=== PATIENT | male | born 1955 | race African-American/Black ===

== ENCOUNTER 2021-05-27 10:13 | Inpatient (IN) | payer MEDICARE, BC ==
[~2021-05-27 10:13] MED LIST: Acetaminophen 325 MG TAB PO PRN; Ondansetron ODT 4 MG TAB SL PRN; Ondansetron PF 4 MG/2 ML Vial IVP PRN
[2021-05-27 13:20] VITALS: BMI 24.3
[2021-05-27] MEDS ORDERED: HumaLOG 300 UNITS/3 ML VIAL SC PRN (17:14)
[2021-05-27] MEDS ORDERED: Dextrose 50% Abboject 50 ML SYRINGE SLOW IVP PRN (17:14)
[2021-05-27] MEDS ORDERED: Dextrose 5% in Water 1,000 ML IV PRN (17:14)
[2021-05-27] MEDS ORDERED: Labetalol HCl 100 MG/20 ML VIAL SLOW IVP PRN (17:15)
[2021-05-27] MEDS ORDERED: hydrALAZINE 20 MG/ML VIAL SLOW IVP PRN (17:15)
[2021-05-27] MEDS ORDERED: Aspirin 81 mg Enteric Coated Tablet PO SCH (17:30)
[2021-05-27] MEDS: HumaLOG 300 UNITS/3 ML VIAL SC PRN (18:01)
[2021-05-27 21:00] LABS: SARS-CoV-2 PCR by NAA Not Detected (NotDetected)
[2021-05-27] MEDS: Atorvastatin Calcium 40 MG TAB PO SCH (21:09)
[2021-05-28 06:58] LABS: Cardiac Risk 4.7 (Less than 4.5)
[2021-05-28] MEDS ORDERED: Magnevist 469MG/ML 20 ML VIAL ONE (10:02)
[2021-05-28] MEDS: Aspirin 81 mg Enteric Coated Tablet PO SCH (10:18)
[2021-05-28] MEDS ORDERED: Clopidogrel Bisulfate 300 MG TAB PO SCH (11:15)
[2021-05-28] MEDS ORDERED: Amlodipine 10 MG TAB PO SCH (11:15)
[2021-05-28] MEDS: HumaLOG 300 UNITS/3 ML VIAL SC PRN ×2 (11:56→18:32)
[2021-05-28 12:29] LABS: Hemoglobin A1c 8.7 % (4.0-6.0)
[2021-05-28] MEDS: Atorvastatin Calcium 40 MG TAB PO SCH (21:02)
[2021-05-29] MEDS ORDERED: metFORMIN 500 MG TAB PO SCH (08:00)
[2021-05-29] MEDS: Aspirin 81 mg Enteric Coated Tablet PO SCH (08:11)
[2021-05-29] MEDS: Amlodipine 5 MG TAB PO SCH (08:11)
[2021-05-29] MEDS: Clopidogrel Bisulfate 75 MG TAB PO SCH (08:11)
[2021-05-29] MEDS: HumaLOG 300 UNITS/3 ML VIAL SC PRN ×2 (11:06→16:55)
[2021-05-29] MEDS ORDERED: Metoprolol Tartrate 25 MG TAB PO SCH (15:45)
[2021-05-29] MEDS: metFORMIN 500 MG TAB PO SCH (16:02)
[2021-05-29] MEDS: Atorvastatin Calcium 40 MG TAB PO SCH (21:07)
[2021-05-29] MEDS: Metoprolol Tartrate 25 MG TAB PO SCH (21:07)
[2021-05-30] MEDS: HumaLOG 300 UNITS/3 ML VIAL SC PRN ×2 (06:44→12:02)
[2021-05-30 08:29] LABS: #Basophils 0.1 thou/uL (0.0-0.2); #Eosinphils 0.3 thou/uL (0.0-0.7); #Lymphocytes 2.2 thou/uL (1.20-3.40); #Monocytes 0.7 thou/uL (0.11-0.59); #Neutrophils 4.5 thou/uL (1.40-6.50); %Basophils 0.7 % (0.0-1.0); %Eosinophils 3.5 % (0.0-10.0); %Lymphocytes 28.1 % (21.0-51.0); %Monocytes 9.1 % (0.0-10.0); %Neutrophils 58.6 % (42.0-75.0); Hemoglobin 13.7 g/dL (14.0-18.0); Mean Corpuscular HGB CONC 32.7 g/dL (32.0-36.0); Mean Corpuscular Hemoglobin 29.7 pg (27.0-31.0); Mean Corpuscular Volume 90.6 fL (78.0-98.0); Mean Platelet Volume 7.6 fL (7.4-10.4); Platelet Count 207 thou/uL (130-400); Red Blood Cell (RBC) Count 4.62 mill/uL (4.70-6.10); White Blood Cell (WBC) Count 7.7 thou/uL (4.8-10.8)
[2021-05-30] MEDS: Clopidogrel Bisulfate 75 MG TAB PO SCH (08:42)
[2021-05-30] MEDS: metFORMIN 500 MG TAB PO SCH ×2 (08:42→16:42)
[2021-05-30] MEDS: Aspirin 81 mg Enteric Coated Tablet PO SCH (08:42)
[2021-05-30] MEDS: Metoprolol Tartrate 25 MG TAB PO SCH (08:42)
[2021-05-30] MEDS: Amlodipine 5 MG TAB PO SCH (08:42)
[2021-05-30 08:55] LABS: Anion Gap 12 mmol/L (10-20); BUN (Urea Nitrogen) 25 mg/dL (8.4-25.7); Calc. Creatinine Clearance 52 mL/min (70-130); Calcium 9.4 mg/dL (7.8-10.44); Carbon Dioxide 25 mmol/L (23-31); Chloride 111 mmol/L (98-107); Glucose 168 mg/dL (80-115); Magnesium 2.3 mg/dL (1.6-2.6); Phosphorus 3.2 mg/dL (2.3-4.7); Potassium 3.6 mmol/L (3.5-5.1); Sodium 144 mmol/L (136-145)
[2021-05-30] MEDS ORDERED: Multivit, Therapeutic 1 TAB PO SCH (09:00)
[2021-05-30 15:51] VITALS: BP 188/96; TEMP 98.2
== END 2021-05-30 18:53 | DRG 66 ==
LOC: NEURO 12:07 → OBSVTOIN 17:20
PROVIDERS: ADMIT Internal Medicine; ATTEND Internal Medicine
DX: I63.29 Cerebral infarction due to unspecified occlusion or stenosis of other precerebral arteries (principal); Z20.822 Contact with and (suspected) exposure to COVID-19; R29.703 NIHSS score 3; R47.81 Slurred speech; R47.1 Dysarthria and anarthria; E78.5 Hyperlipidemia, unspecified; E11.22 Type 2 diabetes mellitus with diabetic chronic kidney disease; I12.9 Hypertensive chronic kidney disease with stage 1 through stage 4 chronic kidney disease, or unspecified chronic kidney disease; N18.2 Chronic kidney disease, stage 2 (mild); D53.9 Nutritional anemia, unspecified; I65.03 Occlusion and stenosis of bilateral vertebral arteries; Z79.84 Long term (current) use of oral hypoglycemic drugs; Z79.899 Other long term (current) drug therapy; G93.89 Other specified disorders of brain
CPT/HCPCS: 36415; 36416; 70553; 80048; 80061; 83036; 83735; 84100; 85025; 93306; A9579; J0360; J1815; U0003; U0005

== ENCOUNTER 2021-06-03 06:52 | Inpatient (IN) | payer MEDICARE, BC ==
[2021-06-03 08:01] LABS: #Basophils 0.1 thou/uL (0.0-0.2); #Eosinphils 0.3 thou/uL (0.0-0.7); #Lymphocytes 1.5 thou/uL (1.20-3.40); #Monocytes 0.8 thou/uL (0.11-0.59); %Basophils 0.9 % (0.0-1.0); %Eosinophils 3.5 % (0.0-10.0); %Lymphocytes 19.9 % (21.0-51.0); %Monocytes 10.7 % (0.0-10.0); Hemoglobin 12.8 g/dL (14.0-18.0); Mean Corpuscular HGB CONC 33.8 g/dL (32.0-36.0); Mean Corpuscular Hemoglobin 30.2 pg (27.0-31.0); Mean Corpuscular Volume 89.4 fL (78.0-98.0); Platelet Count 186 thou/uL (130-400); RBC Distribution Width 12.7 % (11.5-14.5); Red Blood Cell (RBC) Count 4.24 mill/uL (4.70-6.10); White Blood Cell (WBC) Count 7.7 thou/uL (4.8-10.8)
[2021-06-03 08:09] LABS: INR-International Normal Ratio 0.9; PTT 29.5 sec (22.9-36.1); Prothrombin Time 12.6 sec (12.0-14.7)
[2021-06-03 08:15] LABS: ALT (SGPT) 13 U/L (8-55); AST (SGOT) 16 U/L (5-34); Albumin 3.2 g/dL (3.4-4.8); Alkaline Phosphatase 56 U/L (40-110); Anion Gap 13 mmol/L (10-20); BUN (Urea Nitrogen) 24 mg/dL (8.4-25.7); Bilirubin, Total 0.6 mg/dL (0.2-1.2); CK (CPK) 134 U/L (30-200); Calc. Creatinine Clearance 0 mL/min (70-130); Calcium 8.6 mg/dL (7.8-10.44); Carbon Dioxide 25 mmol/L (23-31); Chloride 106 mmol/L (98-107); Globulin 2.5 g/dL (2.4-3.5); Glucose 138 mg/dL (80-115); Magnesium 2.2 mg/dL (1.6-2.6); Potassium 4.1 mmol/L (3.5-5.1); Protein, Total 5.7 g/dL (5.8-8.1); Sodium 140 mmol/L (136-145)
[2021-06-03] MEDS ORDERED: hydrALAZINE 20 MG/ML VIAL SLOW IVP PRN (09:46)
[2021-06-03] MEDS ORDERED: Enoxaparin Sodium 40 MG/0.4 ML SYRINGE SC SCH (10:00)
[2021-06-03] MEDS ORDERED: Dextrose 50% Abboject 50 ML SYRINGE SLOW IVP PRN (10:15)
[2021-06-03] MEDS ORDERED: Dextrose 5% in Water 1,000 ML IV PRN (10:15)
[2021-06-03 16:40] LABS: Actual Bicarbonate (HCO3a) 24.9 mEq/L (22-28); Base Excess (BEa) 1.3 mEq/L (-2.0 to +3.0); CO2 Tension 36.2 mmHg (35.0-45.0); Calcium, Ionized (arterial) 1.18 mmol/L (1.12-1.30); Carboxyhemoglobin (COHb) 0.2 gm% (0.0-3.0); Hemoglobin (Hb) 14.4 g/dL (14.0-18.0); O2 Tension (PaO2), arterial 84.7 mmHg (> 80.0); pH, Arterial 7.46 (7.35-7.45)
[2021-06-03 16:45] LABS: Puncture Site RRA
[2021-06-03] MEDS: Atorvastatin Calcium 40 MG TAB PO SCH (21:15)
[2021-06-04 06:25] LABS: #Eosinphils 0.2 thou/uL (0.0-0.7); #Lymphocytes 1.2 thou/uL (1.20-3.40); #Monocytes 0.8 thou/uL (0.11-0.59); #Neutrophils 5.5 thou/uL (1.40-6.50); %Basophils 0.4 % (0.0-1.0); %Lymphocytes 15.8 % (21.0-51.0); %Monocytes 10.1 % (0.0-10.0); %Neutrophils 71.7 % (42.0-75.0); Hemoglobin 13.7 g/dL (14.0-18.0); Mean Corpuscular HGB CONC 33.7 g/dL (32.0-36.0); Mean Corpuscular Hemoglobin 29.7 pg (27.0-31.0); Mean Corpuscular Volume 88.2 fL (78.0-98.0); Mean Platelet Volume 8.3 fL (7.4-10.4); Platelet Count 195 thou/uL (130-400); RBC Distribution Width 12.6 % (11.5-14.5); Red Blood Cell (RBC) Count 4.61 mill/uL (4.70-6.10); White Blood Cell (WBC) Count 7.7 thou/uL (4.8-10.8)
[2021-06-04 06:45] LABS: Anion Gap 16 mmol/L (10-20); BUN (Urea Nitrogen) 20 mg/dL (8.4-25.7); Calc. Creatinine Clearance 61 mL/min (70-130); Carbon Dioxide 21 mmol/L (23-31); Cardiac Risk 4.6 (Less than 4.5); Chloride 107 mmol/L (98-107); Cholesterol 184 mg/dl (< 200 Desired); Glucose 106 mg/dL (80-115); HDL Cholesterol 40 mg/dL (>60 Neg Risk); LDL Cholesterol, Calculated 123 mg/dL; Potassium 3.6 mmol/L (3.5-5.1); Sodium 140 mmol/L (136-145); Triglycerides 105 mg/dL (Less than 150)
[2021-06-04] MEDS: Enoxaparin Sodium 40 MG/0.4 ML SYRINGE SC SCH (08:59)
[2021-06-04] MEDS ORDERED: Aspirin 81 mg Enteric Coated Tablet PO SCH ×2 (09:00→16:30)
[2021-06-04] MEDS ORDERED: Clopidogrel Bisulfate 75 MG TAB PO SCH ×2 (09:00→16:45)
[2021-06-04 11:49] LABS: SARS-CoV-2 PCR by NAA Not Detected (NotDetected)
[2021-06-04] MEDS ORDERED: Amlodipine 5 MG TAB PO SCH (16:30)
[2021-06-04] MEDS ORDERED: Metoprolol Tartrate 25 MG TAB PO SCH (16:30)
[2021-06-04] MEDS ORDERED: Atorvastatin Calcium 40 MG TAB PO SCH (21:00)
[2021-06-04] MEDS: Atorvastatin Calcium 40 MG TAB PO SCH (21:35)
[2021-06-05] MEDS ORDERED: Amlodipine 5 MG TAB PO SCH (09:00)
[2021-06-05] MEDS ORDERED: Metoprolol Tartrate 25 MG TAB PO SCH ×2 (09:00)
[2021-06-05] MEDS: Enoxaparin Sodium 40 MG/0.4 ML SYRINGE SC SCH (13:15)
[2021-06-05] MEDS: Aspirin 81 mg Enteric Coated Tablet PO SCH (15:38)
[2021-06-05] MEDS: Metoprolol Tartrate 50 MG TAB PO SCH ×2 (15:39→20:18)
[2021-06-05] MEDS: Clopidogrel Bisulfate 75 MG TAB PO SCH (15:43)
[2021-06-05] MEDS: Atorvastatin Calcium 40 MG TAB PO SCH (20:18)
[2021-06-05] MEDS: Acetaminophen 325 MG TAB PO PRN (21:11)
[2021-06-06] MEDS ORDERED: Amlodipine 5 MG TAB PO SCH (08:12)
[2021-06-06 09:47] LABS: Actual Bicarbonate (HCO3a) 21.8 mEq/L (22-28); Analyzer IN Cardio ER; Base Excess (BEa) -1.1 mEq/L (-2.0 to +3.0); CO2 Tension 31.4 mmHg (35.0-45.0); Calcium, Ionized (arterial) 1.21 mmol/L (1.12-1.30); Carboxyhemoglobin (COHb) 0.3 gm% (0.0-3.0); Hemoglobin (Hb) 13.8 g/dL (14.0-18.0); O2 Tension (PaO2), arterial 93.1 mmHg (> 80.0); Potassium - ABG Lab 3.76 mmol/L (3.70-5.30); pH, Arterial 7.46 (7.35-7.45)
[2021-06-06] MEDS: Clopidogrel Bisulfate 75 MG TAB PO SCH (09:48)
[2021-06-06] MEDS: Enoxaparin Sodium 40 MG/0.4 ML SYRINGE SC SCH (09:48)
[2021-06-06] MEDS: Amlodipine 10 MG TAB PO SCH (09:48)
[2021-06-06] MEDS: Aspirin 81 mg Enteric Coated Tablet PO SCH (09:48)
[2021-06-06] MEDS: Metoprolol Tartrate 50 MG TAB PO SCH ×2 (09:48→20:01)
[2021-06-06 09:53] LABS: Puncture Site LRA
[2021-06-06 10:05] LABS: #Eosinphils 0.3 thou/uL (0.0-0.7); #Lymphocytes 1.4 thou/uL (1.20-3.40); #Monocytes 1.1 thou/uL (0.11-0.59); #Neutrophils 5.6 thou/uL (1.40-6.50); %Basophils 0.2 % (0.0-1.0); %Eosinophils 3.3 % (0.0-10.0); %Lymphocytes 16.5 % (21.0-51.0); %Monocytes 12.6 % (0.0-10.0); %Neutrophils 67.4 % (42.0-75.0); Hemoglobin 13.4 g/dL (14.0-18.0); Mean Corpuscular HGB CONC 31.7 g/dL (32.0-36.0); Mean Corpuscular Hemoglobin 28.5 pg (27.0-31.0); Mean Corpuscular Volume 90.1 fL (78.0-98.0); Mean Platelet Volume 8.4 fL (7.4-10.4); Platelet Count 205 thou/uL (130-400); RBC Distribution Width 13.1 % (11.5-14.5); Red Blood Cell (RBC) Count 4.68 mill/uL (4.70-6.10); White Blood Cell (WBC) Count 8.3 thou/uL (4.8-10.8)
[2021-06-06 10:21] LABS: Lactic Acid 0.9 mmol/L (0.5-2.2)
[2021-06-06 10:25] LABS: ALT (SGPT) 16 U/L (8-55); AST (SGOT) 20 U/L (5-34); Albumin 3.3 g/dL (3.4-4.8); Alkaline Phosphatase 66 U/L (40-110); Anion Gap 13 mmol/L (10-20); BUN (Urea Nitrogen) 35 mg/dL (8.4-25.7); Bilirubin, Total 0.3 mg/dL (0.2-1.2); Calc. Creatinine Clearance 42 mL/min (70-130); Calcium 9.4 mg/dL (7.8-10.44); Carbon Dioxide 24 mmol/L (23-31); Chloride 107 mmol/L (98-107); Globulin 3.4 g/dL (2.4-3.5); Glucose 169 mg/dL (80-115); Potassium 3.9 mmol/L (3.5-5.1); Protein, Total 6.7 g/dL (5.8-8.1); Sodium 140 mmol/L (136-145)
[2021-06-06] MEDS: hydrALAZINE 20 MG/ML VIAL SLOW IVP PRN (11:19)
[2021-06-06] MEDS: HumaLOG 300 UNITS/3 ML VIAL SC PRN (12:58)
[2021-06-06 13:16] VITALS: BMI 24.5
[2021-06-06 14:30] LABS: Anion Gap 12 mmol/L (10-20); BUN (Urea Nitrogen) 32 mg/dL (8.4-25.7); Calc. Creatinine Clearance 47 mL/min (70-130); Calcium 9.8 mg/dL (7.8-10.44); Carbon Dioxide 28 mmol/L (23-31); Chloride 105 mmol/L (98-107); Glucose 167 mg/dL (80-115); Potassium 3.6 mmol/L (3.5-5.1); Sodium 141 mmol/L (136-145)
[2021-06-06] MEDS: Lactated Ringer's 1,000 ML IV SCH (14:41)
[2021-06-06] MEDS: Atorvastatin Calcium 40 MG TAB PO SCH (20:01)
[2021-06-07] MEDS: Lactated Ringer's 1,000 ML IV SCH ×2 (01:23→10:39)
[2021-06-07] MEDS: HumaLOG 300 UNITS/3 ML VIAL SC PRN ×2 (06:27→13:26)
[2021-06-07] MEDS: Enoxaparin Sodium 40 MG/0.4 ML SYRINGE SC SCH (08:35)
[2021-06-07] MEDS: Aspirin 81 mg Enteric Coated Tablet PO SCH (08:35)
[2021-06-07] MEDS: Metoprolol Tartrate 50 MG TAB PO SCH ×2 (08:36→20:08)
[2021-06-07] MEDS: Clopidogrel Bisulfate 75 MG TAB PO SCH (08:36)
[2021-06-07] MEDS: Amlodipine 10 MG TAB PO SCH (08:37)
[2021-06-07 08:55] LABS: Anion Gap 12 mmol/L (10-20); BUN (Urea Nitrogen) 26 mg/dL (8.4-25.7); Calc. Creatinine Clearance 55 mL/min (70-130); Calcium 9.2 mg/dL (7.8-10.44); Carbon Dioxide 27 mmol/L (23-31); Chloride 107 mmol/L (98-107); Glucose 177 mg/dL (80-115); Potassium 3.9 mmol/L (3.5-5.1); Sodium 142 mmol/L (136-145)
[2021-06-07] MEDS ORDERED: Lisinopril 20 MG TAB PO SCH (09:00)
[2021-06-07] MEDS ORDERED: Amino Acids 4.25 %/Dextrose 5% 2,000 ML BAG IV SCH (16:15)
[2021-06-07] MEDS ORDERED: Dextrose 5% in Water 1,000 ML IV SCH (16:30)
[2021-06-07] MEDS: Amino Acids 4.25 %/Dextrose 5% 1,000 ML IV SCH (18:15)
[2021-06-07] MEDS: Scopolamine 1.5 mg/72 hour Patch TD SCH (18:40)
[2021-06-07] MEDS: hydrALAZINE 20 MG/ML VIAL SLOW IVP PRN (19:58)
[2021-06-07] MEDS: Atorvastatin Calcium 40 MG TAB PO SCH (20:08)
[2021-06-07] MEDS: Ondansetron PF 4 MG/2 ML Vial IVP PRN (23:06)
[2021-06-08 05:30] LABS: Anion Gap 12 mmol/L (10-20); BUN (Urea Nitrogen) 21 mg/dL (8.4-25.7); Calc. Creatinine Clearance 51 mL/min (70-130); Carbon Dioxide 27 mmol/L (23-31); Chloride 104 mmol/L (98-107); Glucose 189 mg/dL (80-115); Potassium 3.7 mmol/L (3.5-5.1); Sodium 139 mmol/L (136-145)
[2021-06-08] MEDS: Ondansetron PF 4 MG/2 ML Vial IVP PRN ×2 (08:00→17:30)
[2021-06-08] MEDS ORDERED: Hydrochlorothiazide 25 MG TAB PO SCH (08:15)
[2021-06-08] MEDS ORDERED: Iopamidol-370 76% 500 ML 1 ML ONE (10:12)
[2021-06-08] MEDS: HumaLOG 300 UNITS/3 ML VIAL SC PRN (11:55)
[2021-06-08] MEDS ORDERED: PROPOFOL 200 MG/20 ML VIAL ONE (13:39)
[2021-06-08] MEDS ORDERED: Lidocaine 1% PF 5 ML VIAL ONE (13:39)
[2021-06-08] MEDS ORDERED: Promethazine HCl 25 MG/ML VIAL IM PRN (14:07)
[2021-06-08] MEDS ORDERED: HYDROmorphone 2 MG/ML VIAL SLOW IVP PRN (14:07)
[2021-06-08] MEDS ORDERED: Promethazine HCl 25 MG/ML VIAL IVPB PRN (14:07)
[2021-06-08] MEDS ORDERED: Ondansetron HCl/PF 4 MG/2 ML Vial IVP PRN (14:07)
[2021-06-08] MEDS ORDERED: Pantoprazole 40 MG GRANULES PACKET PER TUBE SCH (14:15)
[2021-06-08] MEDS ORDERED: Aspirin Chewable 81 MG TAB PO SCH (16:30)
[2021-06-08] MEDS: Clopidogrel Bisulfate 75 MG TAB PO SCH (16:37)
[2021-06-08] MEDS: Metoprolol Tartrate 50 MG TAB PO SCH ×2 (16:37→21:06)
[2021-06-08] MEDS: Lisinopril 20 MG TAB PO SCH (16:37)
[2021-06-08] MEDS: Amlodipine 10 MG TAB PO SCH (16:37)
[2021-06-08] MEDS: Enoxaparin Sodium 40 MG/0.4 ML SYRINGE SC SCH (16:37)
[2021-06-08] MEDS: hydrALAZINE 25 MG TAB PO SCH ×2 (16:38→21:05)
[2021-06-08] MEDS: Amino Acids 4.25 %/Dextrose 5% 1,000 ML IV SCH ×2 (16:39→18:26)
[2021-06-08] MEDS: Aspirin 81 mg Enteric Coated Tablet PO SCH (17:17)
[2021-06-08] MEDS: Metoclopramide HCl 10 MG/2 ML VIAL IVP SCH (18:26)
[2021-06-08 18:40] LABS: ALT (SGPT) 22 U/L (8-55); AST (SGOT) 26 U/L (5-34); Albumin 3.8 g/dL (3.4-4.8); Alkaline Phosphatase 72 U/L (40-110); Bilirubin, Direct 0.2 mg/dL (0.1-0.3); Bilirubin, Total 0.4 mg/dL (0.2-1.2); Protein, Total 7.5 g/dL (5.8-8.1)
[2021-06-08] MEDS ORDERED: Pantoprazole 40 MG VIAL IVP SCH (20:13)
[2021-06-08] MEDS ORDERED: Morphine 4 MG/ML VIAL SLOW IVP SCH (20:15)
[2021-06-08 21:01] LABS: Hemoglobin 13.4 g/dL (14.0-18.0)
[2021-06-08] MEDS: Atorvastatin Calcium 40 MG TAB PO SCH (21:05)
[2021-06-08] MEDS ORDERED: Sodium Chloride 0.9% 1,000 ML IV SCH (23:45)
[2021-06-08] MEDS ORDERED: Acetaminophen 650 MG Suppository PR PRN (23:47)
[2021-06-09] MEDS: Cefepime 1 GM in Sodium Chloride 0.9% 100 ML IVPB SCH ×3 (01:00→23:07)
[2021-06-09 02:02] LABS: Anion Gap 18 mmol/L (10-20); BUN (Urea Nitrogen) 26 mg/dL (8.4-25.7); Calc. Creatinine Clearance 42 mL/min (70-130); Calcium 9.4 mg/dL (7.8-10.44); Carbon Dioxide 20 mmol/L (23-31); Chloride 104 mmol/L (98-107); Glucose 223 mg/dL (80-115); Potassium 3.8 mmol/L (3.5-5.1); Sodium 138 mmol/L (136-145)
[2021-06-09] MEDS: Metoclopramide HCl 10 MG/2 ML VIAL IVP SCH ×3 (02:03→17:36)
[2021-06-09] MEDS: Vancomycin 1.5 GRAM/300 ML BAG 1.5 GM in Premix Bag 1 BAG IVPB SCH (02:04)
[2021-06-09] MEDS ORDERED: Sodium Chloride 0.9% 500 ML IV SCH (03:30)
[2021-06-09 05:09] LABS: Anion Gap 15 mmol/L (10-20); BUN (Urea Nitrogen) 29 mg/dL (8.4-25.7); Calc. Creatinine Clearance 39 mL/min (70-130); Calcium 9.1 mg/dL (7.8-10.44); Carbon Dioxide 22 mmol/L (23-31); Chloride 105 mmol/L (98-107); Glucose 225 mg/dL (80-115); Potassium 3.6 mmol/L (3.5-5.1); Sodium 138 mmol/L (136-145)
[2021-06-09 05:43] LABS: Bacteria/HPF None Seen HPF (None Seen); Bilirubin Negative (Negative); Blood, Urine Trace (Negative); Clarity Clear (Clear); Glucose, Urine (Dipstick) 500 mg/dL (Negative); Ketone, Urine 10 mg/dL (Negative); Leukocyte Negative Leu/uL (Negative); Nitrite Negative (Negative); Protein, Urine (Dipstick) 300 mg/dL (Neg-Trace); RBC/HPF 0-3 HPF (0-3); Specific Gravity, Urine 1.025 (1.002-1.036); Squamous Epithelial None Seen HPF (0-3); Urobilinogen Normal mg/dL (Less than 2); WBC/HPF 0-3 HPF (0-3); pH, Urine 5.5 (5.0-9.0)
[2021-06-09 05:59] LABS: Sperm/HPF 3+ HPF (None Seen)
[2021-06-09 06:03] LABS: Urine Culture Reflex No No
[2021-06-09] MEDS: HumaLOG 300 UNITS/3 ML VIAL SC PRN ×2 (06:43→18:47)
[2021-06-09] MEDS ORDERED: Dextrose 5% in Water 1,000 ML IV PRN (08:30)
[2021-06-09] MEDS ORDERED: Dextrose 50% Abboject 50 ML SYRINGE SLOW IVP PRN (08:30)
[2021-06-09] MEDS ORDERED: Insulin Regular 300 UNITS/3 ML VIAL SC PRN (08:30)
[2021-06-09] MEDS ORDERED: Hydrochlorothiazide 25 MG TAB PO SCH (09:00)
[2021-06-09] MEDS ORDERED: Vancomycin 1 GM in Premix Bag 1 BAG IVPB SCH (09:00)
[2021-06-09] MEDS ORDERED: Pantoprazole 40 MG GRANULES PACKET PER TUBE SCH (09:00)
[2021-06-09] MEDS: Enoxaparin Sodium 40 MG/0.4 ML SYRINGE SC SCH (11:27)
[2021-06-09] MEDS: Clopidogrel Bisulfate 75 MG TAB PO SCH (11:28)
[2021-06-09] MEDS: hydrALAZINE 25 MG TAB PO SCH ×3 (11:28→22:31)
[2021-06-09] MEDS: Lisinopril 20 MG TAB PO SCH (11:28)
[2021-06-09] MEDS: Aspirin Chewable 81 MG TAB PO SCH (11:34)
[2021-06-09] MEDS: Metoprolol Tartrate 50 MG TAB PO SCH ×2 (11:35→22:31)
[2021-06-09] MEDS: Amlodipine 10 MG TAB PO SCH (11:36)
[2021-06-09] MEDS ORDERED: Pantoprazole 40 MG VIAL IVP SCH (12:00)
[2021-06-09] MEDS: Ondansetron PF 4 MG/2 ML Vial IVP PRN ×2 (14:11→23:10)
[2021-06-09] MEDS: Amino Acids 4.25 %/Dextrose 5% 1,000 ML IV SCH (20:57)
[2021-06-09] MEDS: Atorvastatin Calcium 40 MG TAB PO SCH (22:30)
[2021-06-09] MEDS: Pantoprazole 40 MG VIAL IVP SCH (22:32)
[2021-06-10] MEDS: HumaLOG 300 UNITS/3 ML VIAL SC PRN (00:42)
[2021-06-10] MEDS ORDERED: Morphine 4 MG/ML VIAL SLOW IVP SCH (02:15)
[2021-06-10] MEDS: Vancomycin 1.5 GRAM/300 ML BAG 1.5 GM in Premix Bag 1 BAG IVPB SCH (02:35)
[2021-06-10] MEDS: Metoclopramide HCl 10 MG/2 ML VIAL IVP SCH ×3 (02:35→18:46)
[2021-06-10] MEDS ORDERED: diphenhydrAMINE 50 MG/ML VIAL IVP SCH ×2 (04:15→04:30)
[2021-06-10 05:36] LABS: #Eosinphils 0.2 thou/uL (0.0-0.7); #Lymphocytes 1.4 thou/uL (1.20-3.40); #Neutrophils 9.6 thou/uL (1.40-6.50); %Basophils 0.4 % (0.0-1.0); %Eosinophils 1.5 % (0.0-10.0); %Lymphocytes 11.7 % (21.0-51.0); %Monocytes 8.1 % (0.0-10.0); %Neutrophils 78.3 % (42.0-75.0); Hemoglobin 12.2 g/dL (14.0-18.0); Mean Corpuscular HGB CONC 34.8 g/dL (32.0-36.0); Mean Corpuscular Hemoglobin 30.6 pg (27.0-31.0); Mean Platelet Volume 8.3 fL (7.4-10.4); Platelet Count 176 thou/uL (130-400); RBC Distribution Width 12.7 % (11.5-14.5); Red Blood Cell (RBC) Count 3.98 mill/uL (4.70-6.10); White Blood Cell (WBC) Count 12.3 thou/uL (4.8-10.8)
[2021-06-10 06:08] LABS: Anion Gap 15 mmol/L (10-20); BUN (Urea Nitrogen) 25 mg/dL (8.4-25.7); Calc. Creatinine Clearance 48 mL/min (70-130); Carbon Dioxide 18 mmol/L (23-31); Chloride 111 mmol/L (98-107); Glucose 200 mg/dL (80-115); Potassium 3.2 mmol/L (3.5-5.1); Sodium 141 mmol/L (136-145)
[2021-06-10] MEDS: Pantoprazole 40 MG VIAL IVP SCH ×2 (08:53→21:01)
[2021-06-10] MEDS ORDERED: Bupivacaine 0.25% 10 ML VIAL ONE (12:20)
[2021-06-10] MEDS ORDERED: Lidocaine 1% w/Epinephrine 1:100K 20 ML VIAL ONE (12:20)
[2021-06-10] MEDS ORDERED: Fentanyl 100 MCG/2 ML VIAL ONE ×2 (12:21→14:13)
[2021-06-10] MEDS ORDERED: Glycopyrrolate 0.2 MG/ML 5 ML SYRINGE ONE (12:52)
[2021-06-10] MEDS ORDERED: Lidocaine 1% PF 5 ML VIAL ONE (12:52)
[2021-06-10] MEDS ORDERED: Rocuronium Bromide 10 MG/ML (10ML VIAL) ONE (12:52)
[2021-06-10] MEDS ORDERED: Ondansetron PF 4 MG/2 ML Vial ONE (12:52)
[2021-06-10] MEDS ORDERED: PROPOFOL 200 MG/20 ML VIAL ONE (12:52)
[2021-06-10] MEDS ORDERED: Ondansetron HCl/PF 4 MG/2 ML Vial IVP PRN (13:20)
[2021-06-10] MEDS ORDERED: Promethazine HCl 25 MG/ML VIAL IM PRN (13:20)
[2021-06-10] MEDS ORDERED: Promethazine HCl 25 MG/ML VIAL IVPB PRN (13:20)
[2021-06-10] MEDS: Cefepime 1 GM in Sodium Chloride 0.9% 100 ML IVPB SCH ×2 (15:45→23:10)
[2021-06-10] MEDS: Amlodipine 10 MG TAB PO SCH (15:45)
[2021-06-10] MEDS: Lisinopril 20 MG TAB PO SCH (15:46)
[2021-06-10] MEDS: hydrALAZINE 25 MG TAB PO SCH ×3 (15:46→21:00)
[2021-06-10] MEDS: Clopidogrel Bisulfate 75 MG TAB PO SCH (15:46)
[2021-06-10] MEDS: Enoxaparin Sodium 40 MG/0.4 ML SYRINGE SC SCH (15:46)
[2021-06-10] MEDS: Aspirin Chewable 81 MG TAB PO SCH (15:46)
[2021-06-10] MEDS: Metoprolol Tartrate 50 MG TAB PO SCH ×2 (15:47→21:00)
[2021-06-10] MEDS: Scopolamine 1.5 mg/72 hour Patch TD SCH (18:46)
[2021-06-10] MEDS: Acetaminophen 325 MG TAB PO PRN (18:46)
[2021-06-10] MEDS: Atorvastatin Calcium 40 MG TAB PO SCH (21:00)
[2021-06-11] MEDS: Acetaminophen 325 MG TAB PO PRN (00:17)
[2021-06-11 00:31] LABS: Vancomycin, Trough 12.2 ug/mL
[2021-06-11] MEDS: Vancomycin 1.5 GRAM/300 ML BAG 1.5 GM in Premix Bag 1 BAG IVPB SCH (00:42)
[2021-06-11] MEDS: Metoclopramide HCl 10 MG/2 ML VIAL IVP SCH ×3 (02:22→17:32)
[2021-06-11 06:04] LABS: #Eosinphils 0.3 thou/uL (0.0-0.7); #Lymphocytes 1.2 thou/uL (1.20-3.40); #Neutrophils 8.4 thou/uL (1.40-6.50); %Basophils 0.3 % (0.0-1.0); %Monocytes 9.3 % (0.0-10.0); %Neutrophils 76.4 % (42.0-75.0); Hemoglobin 11.2 g/dL (14.0-18.0); Mean Corpuscular Hemoglobin 30.5 pg (27.0-31.0); Mean Corpuscular Volume 89.7 fL (78.0-98.0); Mean Platelet Volume 8.2 fL (7.4-10.4); Platelet Count 185 thou/uL (130-400); RBC Distribution Width 12.8 % (11.5-14.5); Red Blood Cell (RBC) Count 3.67 mill/uL (4.70-6.10)
[2021-06-11 06:27] LABS: Anion Gap 15 mmol/L (10-20); BUN (Urea Nitrogen) 20 mg/dL (8.4-25.7); Calc. Creatinine Clearance 51 mL/min (70-130); Calcium 8.5 mg/dL (7.8-10.44); Carbon Dioxide 16 mmol/L (23-31); Chloride 111 mmol/L (98-107); Glucose 176 mg/dL (80-115); Potassium 3.2 mmol/L (3.5-5.1); Sodium 139 mmol/L (136-145)
[2021-06-11] MEDS: Aspirin Chewable 81 MG TAB PO SCH (08:22)
[2021-06-11] MEDS: Lisinopril 20 MG TAB PO SCH (08:22)
[2021-06-11] MEDS: Clopidogrel Bisulfate 75 MG TAB PO SCH (08:22)
[2021-06-11] MEDS: hydrALAZINE 25 MG TAB PO SCH ×3 (08:22→21:01)
[2021-06-11] MEDS: Enoxaparin Sodium 40 MG/0.4 ML SYRINGE SC SCH (08:22)
[2021-06-11] MEDS: Pantoprazole 40 MG VIAL IVP SCH ×2 (08:22→21:01)
[2021-06-11] MEDS: Metoprolol Tartrate 50 MG TAB PO SCH ×2 (08:22→21:09)
[2021-06-11] MEDS: Amlodipine 10 MG TAB PO SCH (08:22)
[2021-06-11] MEDS: hydrALAZINE 20 MG/ML VIAL SLOW IVP PRN (10:06)
[2021-06-11] MEDS: Cefepime 1 GM in Sodium Chloride 0.9% 100 ML IVPB SCH ×2 (12:04→23:05)
[2021-06-11] MEDS: Sodium Chloride 0.9% 1,000 ML IV SCH (17:18)
[2021-06-11] MEDS: Atorvastatin Calcium 40 MG TAB PO SCH (21:01)
[2021-06-11 22:30] LABS: Actual Bicarbonate (HCO3a) 11.4 mEq/L (22-28); Base Excess (BEa) -6.1 mEq/L (-2.0 to +3.0); Calcium, Ionized (arterial) 1.13 mmol/L (1.12-1.30); Carboxyhemoglobin (COHb) 0.1 gm% (0.0-3.0); Hemoglobin (Hb) 12.1 g/dL (14.0-18.0); Potassium - ABG Lab 3.13 mmol/L (3.70-5.30)
[2021-06-11 22:34] LABS: CO2 Tension 10.7 mmHg (35.0-45.0); O2 Tension (PaO2), arterial 30.8 mmHg (> 80.0); pH, Arterial 7.65 (7.35-7.45)
[2021-06-11 22:36] LABS: Puncture Site RR
[2021-06-12] MEDS: Hydrocodone-Acetamin 15 ML UDCUP PO PRN ×2 (01:13→14:10)
[2021-06-12] MEDS: Metoclopramide HCl 10 MG/2 ML VIAL IVP SCH ×3 (01:14→17:35)
[2021-06-12] MEDS: Vancomycin 1.5 GRAM/300 ML BAG 1.5 GM in Premix Bag 1 BAG IVPB SCH (01:15)
[2021-06-12 05:36] LABS: #Basophils 0.1 thou/uL (0.0-0.2); #Eosinphils 0.4 thou/uL (0.0-0.7); #Lymphocytes 1.5 thou/uL (1.20-3.40); #Monocytes 1.1 thou/uL (0.11-0.59); #Neutrophils 7.2 thou/uL (1.40-6.50); %Basophils 0.5 % (0.0-1.0); %Eosinophils 4.3 % (0.0-10.0); %Lymphocytes 14.7 % (21.0-51.0); %Monocytes 10.4 % (0.0-10.0); Hemoglobin 10.6 g/dL (14.0-18.0); Mean Corpuscular HGB CONC 33.3 g/dL (32.0-36.0); Mean Corpuscular Hemoglobin 29.9 pg (27.0-31.0); Mean Corpuscular Volume 89.8 fL (78.0-98.0); Mean Platelet Volume 8.4 fL (7.4-10.4); Platelet Count 217 thou/uL (130-400); RBC Distribution Width 12.9 % (11.5-14.5); Red Blood Cell (RBC) Count 3.54 mill/uL (4.70-6.10); White Blood Cell (WBC) Count 10.3 thou/uL (4.8-10.8)
[2021-06-12 06:01] LABS: Anion Gap 15 mmol/L (10-20); BUN (Urea Nitrogen) 23 mg/dL (8.4-25.7); Calc. Creatinine Clearance 47 mL/min (70-130); Calcium 8.5 mg/dL (7.8-10.44); Carbon Dioxide 14 mmol/L (23-31); Chloride 116 mmol/L (98-107); Glucose 177 mg/dL (80-115); Sodium 142 mmol/L (136-145)
[2021-06-12] MEDS: Sodium Chloride 0.9% 1,000 ML IV SCH ×2 (09:13→21:34)
[2021-06-12] MEDS: Amlodipine 10 MG TAB PO SCH (09:14)
[2021-06-12] MEDS: Enoxaparin Sodium 40 MG/0.4 ML SYRINGE SC SCH (09:15)
[2021-06-12] MEDS: Clopidogrel Bisulfate 75 MG TAB PO SCH (09:15)
[2021-06-12] MEDS: Aspirin Chewable 81 MG TAB PO SCH (09:15)
[2021-06-12] MEDS: Pantoprazole 40 MG VIAL IVP SCH ×2 (09:15→21:33)
[2021-06-12] MEDS: Metoprolol Tartrate 50 MG TAB PO SCH ×2 (09:15→21:33)
[2021-06-12] MEDS: hydrALAZINE 25 MG TAB PO SCH ×3 (09:15→21:33)
[2021-06-12] MEDS: Lisinopril 20 MG TAB PO SCH (09:20)
[2021-06-12] MEDS: Cefepime 1 GM in Sodium Chloride 0.9% 100 ML IVPB SCH (11:35)
[2021-06-12] MEDS: HumaLOG 300 UNITS/3 ML VIAL SC PRN ×2 (12:48→18:38)
[2021-06-12] MEDS: hydrALAZINE 20 MG/ML VIAL SLOW IVP PRN (17:47)
[2021-06-12] MEDS: Atorvastatin Calcium 40 MG TAB PO SCH (21:32)
[2021-06-13 00:16] LABS: Vancomycin, Trough 16.9 ug/mL
[2021-06-13] MEDS: Sodium Chloride 0.9% 1,000 ML IV SCH ×2 (00:32→11:15)
[2021-06-13] MEDS: Metoclopramide HCl 10 MG/2 ML VIAL IVP SCH ×2 (04:06→11:22)
[2021-06-13] MEDS: Acetaminophen 325 MG TAB PO PRN ×2 (04:06→11:12)
[2021-06-13 06:31] LABS: Band 28 % (5-11); Hemoglobin 10.8 g/dL (14.0-18.0); Lymphocytes 6 % (21-51); MDiff Complete? YES; Mean Corpuscular HGB CONC 33.2 g/dL (32.0-36.0); Mean Corpuscular Hemoglobin 30.1 pg (27.0-31.0); Mean Corpuscular Volume 90.7 fL (78.0-98.0); Mean Platelet Volume 8.1 fL (7.4-10.4); Metamyelocyte 1 % (0-0); Monocytes 6 % (0-10); Neutrophil 59 % (42-75); Platelet Count 245 thou/uL (130-400); Platelet Morphology Comment Appears Adequate; RBC Distribution Width 13.1 % (11.5-14.5); Red Blood Cell (RBC) Count 3.57 mill/uL (4.70-6.10); White Blood Cell (WBC) Count 16.3 thou/uL (4.8-10.8)
[2021-06-13] MEDS: Lisinopril 20 MG TAB PO SCH (11:11)
[2021-06-13] MEDS: hydrALAZINE 25 MG TAB PO SCH (11:11)
[2021-06-13] MEDS: Aspirin Chewable 81 MG TAB PO SCH (11:11)
[2021-06-13] MEDS: Clopidogrel Bisulfate 75 MG TAB PO SCH (11:11)
[2021-06-13] MEDS: Metoprolol Tartrate 50 MG TAB PO SCH (11:11)
[2021-06-13] MEDS: Ondansetron PF 4 MG/2 ML Vial IVP PRN (11:12)
[2021-06-13] MEDS: Pantoprazole 40 MG VIAL IVP SCH (11:12)
[2021-06-13] MEDS: Amlodipine 10 MG TAB PO SCH (11:12)
[2021-06-13 11:46] VITALS: BP 165/87; TEMP 101
[2021-06-13] MEDS: Enoxaparin Sodium 40 MG/0.4 ML SYRINGE SC SCH (12:29)
== END 2021-06-13 17:46 | disposition expired | DRG 987 ==
LOC: ERS 06:52 → ERHOLD 09:19 → NEURO 15:52
PROVIDERS: ADMIT Internal Medicine; ATTEND Internal Medicine
PROC: 3E0G76Z Introduction of Nutritional Substance into Upper GI, Via Natural or Artificial Opening (ICD-10-PCS; 2021-06-04)
PROC: 0DH63UZ Insertion of Feeding Device into Stomach, Percutaneous Approach (ICD-10-PCS; 2021-06-08)
PROC: 0DH63UZ Insertion of Feeding Device into Stomach, Percutaneous Approach (ICD-10-PCS; principal; 2021-06-10)
PROC: 0DQ64ZZ Repair Stomach, Percutaneous Endoscopic Approach (ICD-10-PCS; 2021-06-10)
DX: I63.29 Cerebral infarction due to unspecified occlusion or stenosis of other precerebral arteries (principal); K65.9 Peritonitis, unspecified; G81.94 Hemiplegia, unspecified affecting left nondominant side; I69.951 Hemiplegia and hemiparesis following unspecified cerebrovascular disease affecting right dominant side; N17.9 Acute kidney failure, unspecified; E46 Unspecified protein-calorie malnutrition; Z20.822 Contact with and (suspected) exposure to COVID-19; Z66 Do not resuscitate; Z51.5 Encounter for palliative care; R47.01 Aphasia; R29.728 NIHSS score 28; E78.5 Hyperlipidemia, unspecified; I12.9 Hypertensive chronic kidney disease with stage 1 through stage 4 chronic kidney disease, or unspecified chronic kidney disease; E11.22 Type 2 diabetes mellitus with diabetic chronic kidney disease; N18.30 Chronic kidney disease, stage 3 unspecified; G93.89 Other specified disorders of brain; R13.12 Dysphagia, oropharyngeal phase; K21.9 Gastro-esophageal reflux disease without esophagitis; K44.9 Diaphragmatic hernia without obstruction or gangrene; R50.82 Postprocedural fever; Z79.82 Long term (current) use of aspirin; Z79.899 Other long term (current) drug therapy; Z79.84 Long term (current) use of oral hypoglycemic drugs; Z78.1 Physical restraint status; Z91.013 Allergy to seafood; Z68.24 Body mass index [BMI] 24.0-24.9, adult
CPT/HCPCS: 36415; 36416; 36600; 70450; 70551; 71045; 74018; 74176; 76000; 80048; 80053; 80061; 80076; 80202; 81001; 82140; 82550; 82805; 83605; 83735; 83880; 84484; 85014; 85018; 85025; 85610; 85730; 87040; 93005; 93306; 94640; 95712; 95819; 95957; C9113; J0360; J0692; J1650; J1815; J2270; J2405; J2704; J2765; J3010; J3370; J3490; J7030; J7050; J7120; J7620; Q9967; S0020; U0003; U0005